=== PATIENT | female | born 1980 | race Asian ===

== ENCOUNTER 2022-08-15 09:21 | Emergency (ER) | payer OTHER ==
[~2022-08-15] VITALS: Ht 165.1 cm; Wt 64.4 kg
--- NOTE | 2022-08-15 09:30 | NUR ---
WALKED INTO ER C/O RIGHT RIB PAIN X 3 DAYS. "HURTS WHEN I TWIST AND INHALE". PATIENT DENIES ANY TRAUMA. NO NAUSEA VOMITING OR DIARRHEA. BREATHING EVEN AND UNLABORED. PT PLACED IN BED AWAITING MD NICOLE.
--- NOTE | 2022-08-15 09:36 | NUR ---
AT BEDSIDE FOR EVAL
--- NOTE | 2022-08-15 09:44 | NUR ---
LAB AT BEDSIDE
--- NOTE | 2022-08-15 09:50 | NUR ---
THREAD CUTTER AT BEDSIDE FOR BLOOD DRAW
[2022-08-15 09:56] LABS: BASOPHILS % (AUTO) 0.2 % (0.0-2.0); HEMATOCRIT 33 % (33-45); HEMOGLOBIN 10.5 g/dL (11.5-14.8); LYMPHOCYTES # (AUTO) 1.4 K/uL (0.8-4.8); LYMPHOCYTES % (AUTO) 23.4 % (20.0-44.0); MEAN CORPUSCULAR HGB CONC 32 g/dl (31.0-36.0); MEAN CORPUSCULAR VOLUME 66 fL (82-100); MONOCYTES # (AUTO) 0.5 K/uL (0.1-1.30); MONOCYTES % (AUTO) 7.7 % (2.0-12.0); NEUTROPHILS # (AUTO) 4.1 K/uL (1.8-8.9); NEUTROPHILS % (AUTO) 67.7 % (43.0-81.0); PLATELET COUNT (AUTO) 230 K/uL (150-450); RED BLOOD CELL COUNT(AUTO) 5.03 MIL/uL (4.0-5.2)
[2022-08-15 10:05] LABS: CALCIUM, SERUM 8.6 mg/dL (8.5-10.1); CREATININE 0.6 mg/dL (0.6-1.3); POTASSIUM 3.4 mmol/L (3.5-5.1)
[2022-08-15 10:10] LABS: ALBUMIN 3.4 g/dL (3.4-5.0); BILIRUBIN,DIRECT 0.1 mg/dL (0.0-0.2); BILIRUBIN,TOTAL 0.4 mg/dL (0.2-1.0); TOTAL PROTEIN, SERUM 7.1 g/dL (6.4-8.2)
--- NOTE | 2022-08-15 10:16 | NUR ---
URINE COLLECTED AND SENT
--- NOTE | 2022-08-15 10:19 | NUR ---
CLAIM CLERK AT BEDSIDE.
[2022-08-15 10:33] LABS: BILIRUBIN,URINE NEGATIVE (NEGATIVE); COLOR,URINE YELLOW (YELLOW); LEUKOCYTE ESTERASE ,URINE NEGATIVE (NEGATIVE); NITRITE, URINE NEGATIVE (NEGATIVE); PROTEIN,URINE TRACE mg/dl (NEGATIVE); UGLUCOSE NEGATIVE (NEGATIVE); UROBILINOGEN,URINE 0.2 EU/dL (0.2)
[2022-08-15] MEDS ORDERED: IBUP-1957 PO (10:51)
[2022-08-15 10:54] LABS: BACTERIA,URINE Rare /HPF (None Seen); RBC,URINE 51-80 /HPF (0-2); SQUAMOUS EPITHELIAL CELL,UR Few /HPF (None Seen)
[2022-08-15 10:55] LABS: MUCUS,URINE Few /LPF (None Seen)
--- NOTE | 2022-08-15 10:59 | NUR ---
Patient discharged to home in stable condition. Written and verbal after care instructions given. Patient verbalizes understanding of instruction.
[2022-08-15 11:02] VITALS: BP 121/71
== END 2022-08-15 11:03 | disposition home or self-care (01) ==
LOC: ER 09:25
DX: R10.11 Right upper quadrant pain (principal); Z79.899 Other long term (current) drug therapy; Z60.2 Problems related to living alone
CPT/HCPCS: 36415; 76700-TC; 80048-TC; 80076-TC; 81001; 83690-TC; 84703-TC; 85025-TC